=== PATIENT | male | born 1980 | race Caucasian/White ===

== ENCOUNTER 2019-10-30 14:22 | Outpatient (CLI) | payer OTHER, SELFPAY | END 2019-10-30 14:42 | PROVIDERS: PCP Nurse Practitioner Family; Visit Provider Family Medicine | DX: R07.89 Other chest pain (principal); I49.1 Atrial premature depolarization; I49.3 Ventricular premature depolarization | CPT/HCPCS: 93225 ==

== ENCOUNTER 2019-10-31 17:02 | Outpatient (CLI) | payer OTHER, SELFPAY ==
--- NOTE | 2019-11-01 09:43 | W.HOLTRPT ---
Date of service: 11/01/19 Time of Service: 09:43 Holter Monitor Report Holter Monitor Note: This is a 24-hour Holter monitor worn for the indication of chest pain. ?The patient was in normal sinus rhythm for the majority of the recording. ?Patient had 0 episodes of supraventricular tachycardia and one single premature atrial contraction. ?The patient had 0 episodes of ventricular tachycardia and one single ventricular ectopic beat. ?The patient had no episodes of atrial fibrillation, no pauses greater than 3 seconds and no high degree heart block. ?There were no patient triggered events.
== END 2019-10-31 17:22 ==
PROVIDERS: PCP Nurse Practitioner Family; Visit Provider Nurse Practitioner Family
DX: R07.89 Other chest pain (principal); I49.1 Atrial premature depolarization; I49.3 Ventricular premature depolarization
CPT/HCPCS: 93226

== ENCOUNTER 2019-11-20 07:57 | Outpatient (CLI) | payer OTHER, SELFPAY ==
[2019-11-20 10:44] LABS: Anion Gap 9.7 mmol/L (3-11); BUN 20 mg/dL (7-18); CO2 25.3 mmol/L (21.0-32.0); CREATININE 0.96 mg/dL (0.70-1.30); Calcium 8.7 mg/dL (8.5-10.1); Calculated LDL 146 mg/dL; Chloride 104 mmol/L (98-107); Cholesterol 207 mg/dL (<200); Glucose 95 mg/dL (74-106); HDL Cholesterol 47 mg/dL (40-60); Potassium 4.3 mmol/L (3.5-5.1); Sodium 139 mmol/L (136-145); TSH (W/Ref FT4) 2.52 uIU/mL (0.36-3.74); Triglyceride 72 mg/dL (<150)
== END 2019-11-20 08:17 ==
PROVIDERS: PCP Nurse Practitioner Family; Visit Provider Nurse Practitioner Family
DX: R07.89 Other chest pain (principal); R06.83 Snoring; Z68.41 Body mass index [BMI] 40.0-44.9, adult
CPT/HCPCS: 36415; 80048; 80061; 84443

== ENCOUNTER 2020-06-23 16:56 | Outpatient (REF) | payer OTHER, SELFPAY ==
[2020-06-23 19:16] LABS: ALT 42 U/L (16-63); AST 28 U/L (15-37); Albumin 4.3 g/dL (3.4-5.0); Alkaline Phosphatase 81 U/L (46-116); Anion Gap 6.6 mmol/L (3-11); BUN 23 mg/dL (7-18); Bilirubin, Total 0.3 mg/dL (0.2-1.0); CO2 30.4 mmol/L (21.0-32.0); CREATININE 1.12 mg/dL (0.70-1.30); Calcium 8.9 mg/dL (8.5-10.1); Chloride 102 mmol/L (98-107); Glucose 107 mg/dL (74-106); Potassium 4.4 mmol/L (3.5-5.1); Sodium 139 mmol/L (136-145); Total Protein 7.4 g/dL (6.4-8.2)
== END 2020-06-23 17:16 ==
LOC: NCHCN 16:56
PROVIDERS: PCP Nurse Practitioner Family; Visit Provider Physician Assistant
DX: B35.1 Tinea unguium (principal)
CPT/HCPCS: 80053

== ENCOUNTER 2021-02-10 17:00 | Outpatient (REF) | payer OTHER, SELFPAY ==
[2021-02-10 20:05] LABS: Anion Gap 12.2 mmol/L (3-11); BUN 16 mg/dL (7-18); CO2 25.8 mmol/L (21.0-32.0); Calcium 8.9 mg/dL (8.5-10.1); Calculated LDL 152 mg/dL (<100); Chloride 103 mmol/L (98-107); Cholesterol 207 mg/dL (<200); Glucose 89 mg/dL (74-106); HDL Cholesterol 43 mg/dL (40-60); Sodium 141 mmol/L (136-145); Triglyceride 64 mg/dL (<150)
[2021-02-10 20:11] LABS: Hemoglobin A1C 5.5 % (<5.7)
== END 2021-02-10 17:01 | disposition home or self-care (01) ==
LOC: NCHCN 17:00
PROVIDERS: PCP Nurse Practitioner Family; Visit Provider Physician Assistant
DX: E78.5 Hyperlipidemia, unspecified (principal); R73.03 Prediabetes
CPT/HCPCS: 80048; 80061; 83036

== ENCOUNTER 2023-01-31 17:41 | Outpatient (REF) | payer BC, SELFPAY ==
[2023-01-31 15:41] LABS: Hemoglobin A1C 5.8 % (<5.7)
[2023-01-31 16:50] LABS: ALT 50 U/L (16-63); AST 22 U/L (15-37); Albumin 4.6 g/dL (3.4-5.0); Alkaline Phosphatase 83 U/L (46-116); Anion Gap 8.3 mmol/L (3-11); BUN 23 mg/dL (7-18); Bilirubin, Total 0.4 mg/dL (0.2-1.0); CO2 27.7 mmol/L (21.0-32.0); Calcium 9.5 mg/dL (8.5-10.1); Calculated LDL 167 mg/dL (<100); Chloride 105 mmol/L (98-107); Cholesterol 231 mg/dL (<200); Estimated GFR 97.58 (mL/min/1.73m2); Glucose 104 mg/dL (74-106); HDL Cholesterol 48 mg/dL (40-60); Potassium 4.2 mmol/L (3.5-5.1); Sodium 141 mmol/L (136-145); Total Protein 7.8 g/dL (6.4-8.2); Triglyceride 83 mg/dL (<150)
== END 2023-01-31 17:42 | disposition home or self-care (01) ==
LOC: NCHCN 17:41
PROVIDERS: PCP Nurse Practitioner Family; Visit Provider Physician Assistant
DX: E78.5 Hyperlipidemia, unspecified (principal); R73.03 Prediabetes
CPT/HCPCS: 80053; 80061; 83036

== ENCOUNTER 2024-04-11 10:10 | Outpatient (REF) | payer BC, SELFPAY ==
[2024-04-11 16:22] LABS: Hemoglobin A1C 5.7 % (<5.7)
[2024-04-11 16:38] LABS: ALT 57 U/L (16-63); AST 23 U/L (15-37); Albumin 4.2 g/dL (3.4-5.0); Alkaline Phosphatase 84 U/L (46-116); Anion Gap 5.9 mmol/L (3-11); BUN 17 mg/dL (7-18); Bilirubin, Total 0.4 mg/dL (0.2-1.0); CO2 27.1 mmol/L (21.0-32.0); Calcium 8.8 mg/dL (8.5-10.1); Calculated LDL 110 mg/dL (<100); Chloride 107 mmol/L (98-107); Cholesterol 169 mg/dL (<200); Estimated GFR 96.97 (mL/min/1.73m2); Glucose 107 mg/dL (74-106); HDL Cholesterol 49 mg/dL (40-60); Potassium 4.6 mmol/L (3.5-5.1); Sodium 140 mmol/L (136-145); Total Protein 7.1 g/dL (6.4-8.2); Triglyceride 50 mg/dL (<150)
== END 2024-04-11 10:11 | disposition home or self-care (01) ==
LOC: NCHCN 10:10
PROVIDERS: Visit Provider Physician Assistant
DX: E78.5 Hyperlipidemia, unspecified (principal); R73.03 Prediabetes
CPT/HCPCS: 80053; 80061; 83036

== ENCOUNTER 2025-01-25 14:30 | Outpatient (REF) | payer OTHER, SELFPAY ==
[2025-01-25 16:54] LABS: ALT 75 U/L (16-63); AST 36 U/L (15-37); Albumin 4.3 g/dL (3.4-5.0); Alkaline Phosphatase 89 U/L (46-116); BUN 23 mg/dL (7-18); Bilirubin, Total 0.6 mg/dL (0.2-1.0); CREATININE 1.1 mg/dL (0.70-1.30); Calculated LDL 145 mg/dL (<100); Chloride 105 mmol/L (98-107); Cholesterol 214 mg/dL (<200); Estimated GFR 85.95 (mL/min/1.73m2); Glucose 94 mg/dL (74-106); HDL Cholesterol 56 mg/dL (>or=40); Potassium 4.6 mmol/L (3.5-5.1); Sodium 140 mmol/L (136-145); Total Protein 7.2 g/dL (6.4-8.2); Triglyceride 66 mg/dL (<150)
[2025-01-25 17:14] LABS: Hemoglobin A1C 5.4 % (<5.7)
== END 2025-01-25 14:31 | disposition home or self-care (01) ==
LOC: NCHCN 14:30
PROVIDERS: PCP Physician Assistant; Visit Provider Physician Assistant
DX: E78.5 Hyperlipidemia, unspecified (principal); R73.03 Prediabetes
CPT/HCPCS: 80053; 80061; 83036

== ENCOUNTER 2025-09-05 05:19 | Outpatient (CLI) | payer OTHER, SELFPAY ==
[2025-09-05 07:47] LABS: Hemoglobin A1C 5.0 % (<5.7)
[2025-09-05 08:29] LABS: ALT 35 U/L (16-63); AST 18 U/L (15-37); Albumin 3.9 g/dL (3.4-5.0); Alkaline Phosphatase 87 U/L (46-116); Anion Gap 7.2 mmol/L (3-11); BUN 22 mg/dL (7-18); Bilirubin, Total 0.3 mg/dL (0.2-1.0); CO2 28.8 mmol/L (21.0-32.0); Calcium 8.9 mg/dL (8.5-10.1); Chloride 105 mmol/L (98-107); Estimated GFR 95.77 (mL/min/1.73m2); Glucose 84 mg/dL (74-106); Potassium 4.6 mmol/L (3.5-5.1); Sodium 141 mmol/L (136-145); Total Protein 7.1 g/dL (6.4-8.2)
[2025-09-05 08:57] LABS: Calculated LDL 118 mg/dL (<100); Cholesterol 170 mg/dL (<200); HDL Cholesterol 41 mg/dL (>or=40); Triglyceride 59 mg/dL (<150)
== END 2025-09-05 05:20 | disposition home or self-care (01) ==
PROVIDERS: PCP Physician Assistant; Visit Provider Physician Assistant
DX: R53.83 Other fatigue (principal); E78.5 Hyperlipidemia, unspecified; R73.03 Prediabetes
CPT/HCPCS: 36415; 80053; 80061; 84403; 83036